=== PATIENT | female | born 1965 | race African-American/Black ===

== ENCOUNTER 2020-08-31 11:38 | Emergency (ER) | payer OTHER ==
[2020-08-31 11:56] VITALS: BP 136/83; PULSE 78; TEMP 98; BMI 26.5
[2020-08-31] MEDS ORDERED: IBUPROFEN 600 MG TABLET (FP) PO ONE ×2 (11:57→12:09)
== END 2020-08-31 12:55 | disposition home or self-care (01) ==
LOC: FER 11:38
DX: S62.647A Nondisplaced fracture of proximal phalanx of left little finger, initial encounter for closed fracture (principal)
CPT/HCPCS: 73130-TC-LT-FY; 99283-25